=== PATIENT | female | born 1945 | race Caucasian/White ===

== ENCOUNTER 2019-11-27 13:42 | Emergency (ER) | payer OTHER ==
[~2019-11-27] VITALS: Ht 149.9 cm; Wt 61.2 kg
[2019-11-27] MEDS ORDERED: GLUMETZA1000 MG (13:53)
[2019-11-27] MEDS ORDERED: VASOTEC2.5 MG (13:54)
[2019-11-27] MEDS ORDERED: NAMENDA10 MG (13:54)
[2019-11-27] MEDS ORDERED: LEVOTHYROXINE25 MCG (13:54)
== END 2019-11-27 20:20 | disposition home or self-care (01) ==
LOC: ER 13:42
DX: K52.89 Other specified noninfective gastroenteritis and colitis (principal); E86.0 Dehydration; R11.2 Nausea with vomiting, unspecified